=== PATIENT | male | born 1990 | race African-American/Black ===

== ENCOUNTER 2018-09-16 08:19 | Emergency (ER) | payer OTHER ==
[~2018-09-16] VITALS: Ht 175.3 cm; Wt 84.1 kg
[~2018-09-16 08:19] MED LIST: BACTRIM DS1 TAB PO; FLEXERIL PO; NAPROSYN500 MG PO; NO HOME MEDS; ULTRAM50 M1 PO
[2018-09-16 09:52] VITALS: BP 158/97
[2018-09-17] MEDS ORDERED: FLEXERIL PO (08:50)
[2018-09-17] MEDS ORDERED: TORADOL PO (08:50)
== END 2018-09-16 10:59 | disposition home or self-care (01) | DRG 563 ==
LOC: ED 08:19
DX: S29.012A Strain of muscle and tendon of back wall of thorax, initial encounter (principal); S39.012A Strain of muscle, fascia and tendon of lower back, initial encounter; M54.5 Low back pain; M54.6 Pain in thoracic spine; V43.52XA Car driver injured in collision with other type car in traffic accident, initial encounter; Y92.414 Local residential or business street as the place of occurrence of the external cause

== ENCOUNTER 2018-09-17 08:25 | Emergency (ER) | payer OTHER ==
[~2018-09-17] VITALS: Ht 175.3 cm; Wt 90.0 kg
[2018-09-17] MEDS ORDERED: TORADOL PO (08:50)
[2018-09-17] MEDS ORDERED: FLEXERIL PO (08:50)
[2018-09-17 08:54] VITALS: BP 128/77
== END 2018-09-17 09:02 | disposition home or self-care (01) | DRG 552 ==
LOC: ED 08:25
DX: S16.1XXA Strain of muscle, fascia and tendon at neck level, initial encounter (principal); F17.200 Nicotine dependence, unspecified, uncomplicated; V49.40XA Driver injured in collision with unspecified motor vehicles in traffic accident, initial encounter

== ENCOUNTER 2023-07-26 19:56 | Emergency (ER) | payer OTHER ==
[~2023-07-26] VITALS: Ht 175.3 cm; Wt 75.0 kg
[~2023-07-26 19:56] MED LIST changes: +TORADOL PO
[2023-07-26] MEDS ORDERED: LANTUS SOL100 UNIT/M (20:25)
[2023-07-26] MEDS ORDERED: ATORVASTATIN CA20 MG PO (20:26)
[2023-07-26] MEDS ORDERED: METFORMIN500 M2 PO (20:26)
[2023-07-26] MEDS ORDERED: HYZAAR1 TA2 PO (20:27)
[2023-07-26 21:54] VITALS: BP 130/87
[2023-07-26 22:00] LABS: HEMATOCRIT 42.7 % (39.0-50.0); HEMOGLOBIN 14.5 g/dl (14.0-18.0); IMMATURE GRANULOCYTES 0.5 % (0.0-5.0); LYMPH% 3.1 % (15-41); MEAN CELL VOLUME 93.6 fL CALC (80.0-100.0); MEAN CORPUSCULAR HGB 31.8 pG CALC (26.0-32.0); MONO% 2.5 % (2-13); NEUT# 22.87 thou/uL (1.82-7.42); NEUT% 93.9 % (42-76); RED BLOOD COUNT 4.56 mill/uL (4.70-6.10); RED CELL DISTRI WIDTH 12.9 % (11.5-15.5)
[2023-07-26 22:13] LABS: ALKALINE PHOSPHATASE 103 u/l (38-126); ANION GAP 14 (6-22 (CALC)); BILIRUBIN, TOTAL 0.5 mg/dL (0.2-1.3); BUN 18 mg/dL (9-20); BUN/CREATININE RATIO 23 (12-20 (CALC)); CARBON DIOXIDE 28 mmol/l (22-30); CHLORIDE 97 mmol/l (95-108); CREATININE 0.8 mg/dL (0.7-1.3); GFR FOR AFR.AMER. > 60 ML/MIN (>=60 (CALC)); GFR OTHER RACES > 60 ML/MIN (>=60 (CALC)); POTASSIUM 3.5 mmol/l (3.5-5.1); SGOT/AST 36 u/l (17-59); SODIUM 136 mmol/l (137-146); TOTAL PROTEIN 6.9 g/dL (6.3-8.2)
[2023-07-26 22:31] VITALS: BP 125/84
[2023-07-26 23:03] VITALS: BP 117/87
[2023-07-26 23:30] VITALS: BP 119/81
[2023-07-26 23:48] LABS: URINE BLOOD DIPSTICK Moderate (NEGATIVE); URINE GLUCOSE - DIPSTICK 100 mg/dL (NEGATIVE); URINE KETONE 40 mg/dL (NEGATIVE); URINE NITRITE - DIPSTICK Negative (Negative); URINE PROTEIN - DIPSTICK >=300 mg/dL (NEG-TRACE); URINE SPECIFIC GRAVITY >=1.030; URINE UROBILINOGEN - DIPSTICK 0.2 E.U./dL (0.2)
[2023-07-26 23:49] LABS: URINE COLOR Dark yellow
[2023-07-26 23:50] LABS: URINE LEUK ESTERASE Negative (NEGATIVE)
[2023-07-26 23:54] LABS: URINE BACTERIA FEW hpf; URINE EPITHELIAL CELLS FEW EPI/hpf (0-FEW)
[2023-07-26 23:55] LABS: URINE HYALINE CAST RARE lpf (NONE-RARE); URINE MUCUS MODERATE hpf (NONE-FEW)
[2023-07-26] MEDS ORDERED: PROMETHAZINE HY25 M1 PO (23:58)
[2023-07-27] VITALS: BP 117/71
[2023-07-27 00:20] VITALS: BP 117/71
== END 2023-07-27 00:31 | disposition home or self-care (01) | DRG 392 ==
LOC: ED 19:56
PROVIDERS: Family Medicine
DX: A08.4 Viral intestinal infection, unspecified (principal); E11.9 Type 2 diabetes mellitus without complications; F17.200 Nicotine dependence, unspecified, uncomplicated; Z79.84 Long term (current) use of oral hypoglycemic drugs; Z79.4 Long term (current) use of insulin; Z20.822 Contact with and (suspected) exposure to COVID-19